=== PATIENT | male | born 1980 | race Two or more races ===

== ENCOUNTER 2019-06-13 14:02 | Emergency (ER) | payer BC ==
[2019-06-13 14:04] VITALS: BP 130/111
--- NOTE | 2019-06-13 14:05 | ER Report ---
History and Physical Time Seen By MD: 14:02 HPI/ROS CHIEF COMPLAINT: [facility] clearance HISTORY OF PRESENT ILLNESS: 39-year-old male patient presents to emergency room with complaint of needing a [facility] clearance. Patient states that he had been drinking heavily. He states he started withdraw. States that he is having headaches, and bad dreams. Patient states he is detoxed rock on the past, and states the pain is his biggest problem. Patient denies any nausea, vomiting or diarrhea. Patient states he is not taking any medication for this. Patient was arrested after going into somebody's garage and falling asleep. Allergies: Coded Allergies: No Known Drug Allergies (Unverified , 06/13/19) Home Meds No Active Prescriptions or Reported Meds Past Medical/Surgical History Patient has a past medical history of diabetes, alcohol abuse. Patient denies any surgical history. Reviewed Nurses Notes: Yes Constitutional Vital Sign - Last 24 Hours 06/13/19 14:04 Temp 98.1 Pulse 122 Resp 18 B/P (MAP) 130/111 Pulse Ox 97 O2 Delivery Room Air Physical Exam General Appearance: The patient is alert, has no immediate need for airway protection and no current signs of toxicity. Patient does smell of alcohol. Respiratory: Chest is non tender, lungs are clear to auscultation. Cardiac: regular rate and rhythm Gastrointestinal: Abdomen is soft and non tender, no masses, bowel sounds normal. Musculoskeletal: Neck: Neck is supple and non tender. Extremities have full range of motion and are non tender. Patient had no tremors. Skin: No rashes or lesions. DIFFERENTIAL DIAGNOSIS: After history and physical exam differential diagnosis was considered for custodial clearance, alcohol intoxication. Medical Decision Making ED Course/Re-evaluation ED Course Patient was admitted to an exam room, history and physical were obtained. Differential diagnoses were considered. On examination lungs are clear, heart is regular, abdomen soft nontender. Patient had no obvious tremor. We will go ahead and discharge patient home at this time. He is to follow-up with his primary care provider. [facility] if condition worsens. If he has worsening of his detox symptoms he should follow-up with the medical staff at the [facility]. Patient verbalized understanding and agreement with plan. Decision to Disposition Date: Jun 13, 2019 Decision to Disposition Time: 14:12 Depart Departure Latest Vital Signs Vital Signs Date Time Temp Pulse Resp B/P (MAP) Pulse Ox O2 Delivery O2 Flow Rate FiO2 06/13/19 14:04 98.1 122 18 130/111 97 Room Air Impression: Primary Impression: Medical clearance for incarceration Additional Impression: Alcohol intoxication Condition: Improved Disposition: [facility] TO [facility] New Scripts No Active Prescriptions or Reported Meds Patient Instructions: Alcohol Intoxication (ED) Additional Instructions: Increase fluid intake. Get plenty of rest. Follow up with the health care providers at the [facility] center. I recommend talking with them about detox symptoms. Return to the ER if condition worsens. Problem Qualifiers Additional Impression: Alcohol intoxication Complication of substance-induced condition: uncomplicated Qualified Codes: F10.920 - Alcohol use, unspecified with intoxication, uncomplicated EFRAIN LEONE Jun 13, 2019 14:05
== END 2019-06-13 14:25 | disposition home or self-care (01) ==
LOC: ER 14:05
DX: F10.920 Alcohol use, unspecified with intoxication, uncomplicated (principal)
CPT/HCPCS: 99281